=== PATIENT | female | born 1980 | race Two or more races ===

== ENCOUNTER 2016-05-31 20:04 | Emergency (ER) | payer BC, OTHER ==
[~2016-05-31] VITALS: Ht 167.6 cm; Wt 86.2 kg
[2016-05-31] MEDS ORDERED: MORPHINE SULFATE 4 MG/ML DISP.SYRIN. IV/SQ PRN (21:15)
--- NOTE | 2016-05-31 21:26 | ED.ADGEN ---
Past Medical History Past Medical History: No Pertinent History Past Surgical History: Tubal ligation, Other Additional Past Surgical Histo: d & c, uterine ablation Alcohol Use: Occasionally Drug Use: None Adult General Chief Complaint Chief Complaint: ABDOMINAL PAIN HPI HPI Patient is a 36 year old woman, with no significant past no history, who presents emergency department with a complaint of intermittent diffuse abdominal pain over the past several weeks, with intermittent episodes of nausea and vomiting, with 2 doses of vomiting today. Patient states that she was feeling lightheaded after this vomiting occurred, her abdominal pain did feel better after vomiting. No fevers or chills, no urinary complaints, no injuries, patient states that she had pain several years ago, which is evaluated , and the cause was not identified. She states that she is also experiencing headaches intermittently which seem to be associated with pain in the vomiting, located all over her head, no blurry vision, no weakness emesis or tingling. She states that "I take Excedrin all the time". She states her doctor is aware for headaches, but she is not discussed the abdominal pain with a primary care provider. She's not receive any previous evaluation. She states after vomiting twice today, she came to the ED for evaluation. Last bowel movement was this afternoon, and was normal. She states she had one episode of diarrhea last week , and that the vomiting abdominal pain at that time cause her to the several days of work. Review of Systems Review of Systems Constitutional: Denies fever or chills. [] Eyes: Denies change in visual acuity. [] HENT: Denies nasal congestion or sore throat. [] Respiratory: Denies cough or shortness of breath. [] Cardiovascular: Denies chest pain or edema. [] GI: Abdominal pain, nausea, vomiting. Diarrhea times one episode last week. Described as loose brown stool. No blood in emesis or stool. : Denies dysuria. [] Musculoskeletal: Denies back pain or joint pain. [] Integument: Denies rash. [] Neurologic: Denies focal weakness or sensory changes. [] Headache, intermittently over the past several months. Endocrine: Denies polyuria or polydipsia. [] Lymphatic: Denies swollen glands. [] Psychiatric: Denies depression or anxiety. [] Current Medications Current Medications Current Medications Medications (Trade) Dose Ordered Sig/Cesar Start Time Stop Time Status Last Admin Dose Admin Morphine Sulfate 4 mg 4 mg PRN Q15MIN PRN 05/31/16 21:15 06/01/16 00:47 DC 05/31/16 21:28 4 MG Ondansetron HCl (Zofran) 4 mg 1X ONCE 05/31/16 21:30 05/31/16 21:31 DC 05/31/16 21:28 4 MG Sodium Chloride (Iv Sodium Chloride 0.9% 1000ml Bag) 1,000 ml @ 1,000 mls/hr Q1H 05/31/16 21:30 05/31/16 22:29 DC 05/31/16 21:28 1,000 MLS/HR Allergies Allergies Allergies Coded Allergies Type Severity Reaction Last Updated Verified No Known Drug Allergies 11/03/14 No Physical Exam Physical Exam Constitutional: Well developed, well nourished, no acute distress, non-toxic appearance. [] HENT: Normocephalic, atraumatic, bilateral external ears normal, oropharynx moist, no oral exudates, nose normal. [] Eyes: PERRLA, EOMI, conjunctiva normal, no discharge. [] Neck: Normal range of motion, no tenderness, supple, no stridor. [] Cardiovascular:Heart rate regular rhythm, no murmur, S1, S2, rubs or gallops.] Lungs & Thorax: Bilateral breath sounds clear to auscultation, no wheezing, rhonchi, rales. No chest tenderness or crepitus. [] Abdomen: Bowel sounds normal, soft, mild tenderness palpation diffusely, especially in the periumbilical region, but also in the suprapubic region, no rebound rigidity or guarding, negative Gonsales sign, no masses, no pulsatile masses. [] Skin: Warm, dry, no erythema, no rash. [] Back: No tenderness, no CVA tenderness. [] Extremities: No tenderness, no cyanosis, no clubbing, ROM intact, no edema. [] Neurologic: Alert and oriented X 3, normal motor function, normal sensory function, no focal deficits noted. [] Psychologic: Affect normal, judgement normal, mood normal. [] Current Patient Data Vital Signs Vital Signs Date Time Temp Pulse Resp B/P Pulse Ox O2 Delivery O2 Flow Rate FiO2 06/01/16 00:06 80 17 119/57 99 Room Air 05/31/16 20:54 98.1 98.1 Lab Values Laboratory Tests Test 05/31/16 20:30 05/31/16 20:46 05/31/16 21:15 05/31/16 23:16 Urine Collection Type Unknown Urine Color Yellow Urine Clarity Clear Urine pH 6.5 Urine Specific [place] 1.025 Urine Protein Negativemg/dL (NEG-TRACE) Urine Glucose (UA) Negativemg/dL (NEG) Urine Ketones (Stick) Tracemg/dL (NEG) Urine Blood Large (NEG) Urine Nitrite Negative (NEG) Urine Bilirubin Negative (NEG) Urine Urobilinogen Dipstick 0.2mg/dL (0.2 mg/dL) Urine Leukocyte Esterase Trace (NEG) Urine RBC 0/HPF (0-2) Urine WBC 1-4/HPF (0-4) Urine Squamous Epithelial Cells Many/LPF Urine Bacteria Few/HPF (0-FEW) Urine Mucus Mod/LPF White Blood Count 9.5x10^3/uL (4.0-11.0) Red Blood Count 4.46x10^6/uL (3.50-5.40) Hemoglobin 13.0g/dL (12.0-15.5) Hematocrit 38.9% (36.0-47.0) Mean Corpuscular Volume 87fL (79-100) Mean Corpuscular Hemoglobin 29pg (25-35) Mean Corpuscular Hemoglobin Concent 34g/dL (31-37) Red Cell Distribution Width 12.7% (11.5-14.5) Platelet Count 86x10^3/uL (140-400) L Neutrophils (%) (Auto) 61% (31-73) Lymphocytes (%) (Auto) 27% (24-48) Monocytes (%) (Auto) 10% (0-9) H Eosinophils (%) (Auto) 2% (0-3) Basophils (%) (Auto) 1% (0-3) Neutrophils # (Auto) 5.7x10^3uL (1.8-7.7) Lymphocytes # (Auto) 2.6x10^3/uL (1.0-4.8) Monocytes # (Auto) 0.9x10^3/uL (0.0-1.1) Eosinophils # (Auto) 0.2x10^3/uL (0.0-0.7) Basophils # (Auto) 0.1x10^3/uL (0.0-0.2) Sodium Level 135mmol/L (136-145) L Potassium Level 3.6mmol/L (3.5-5.1) Chloride Level 102mmol/L (98-107) Carbon Dioxide Level 26mmol/L (21-32) Anion Gap 7 (6-14) Blood Urea Nitrogen 7mg/dL (7-20) Creatinine 0.7mg/dL (0.6-1.0) Estimated GFR (Cockcroft-Gault) 94.2 BUN/Creatinine Ratio 10 (6-20) Glucose Level 125mg/dL (70-99) H Calcium Level 8.9mg/dL (8.5-10.1) Total Bilirubin 0.3mg/dL (0.2-1.0) Aspartate Amino Transferase (AST) 32U/L (15-37) Alanine Aminotransferase (ALT) 63U/L (14-59) H Alkaline Phosphatase 85U/L (46-116) Total Protein 7.4g/dL (6.4-8.2) Albumin 3.4g/dL (3.4-5.0) Albumin/Globulin Ratio 0.9 (1.0-1.7) L Lipase 203U/L (73-393) Urine Opiates Screen Neg (NEG) Urine Methadone Screen Neg (NEG) Urine Barbiturates Neg (NEG) Urine Phencyclidine Screen Neg (NEG) Urine Amphetamine/Methamphetamine Neg (NEG) Urine Benzodiazepines Screen Neg (NEG) Urine Cocaine Screen Neg (NEG) Urine Cannabinoids Screen Neg (NEG) Urine Ethyl Alcohol Neg (NEG) Influenza Type A Antigen Negative (NEGATIVE) Influenza Type B Antigen Negative (NEGATIVE) Laboratory Tests 05/31/16 20:46 Laboratory Tests 05/31/16 20:46 EKG EKG ECG: Sinus tachycardia, heart rate 101 bpm, no ectopy. As interpreted by me. [] Radiology/Procedures Radiology/Procedures [] [facility] [address] [place], [place] [id number] IMAGING REPORT Signed PATIENT: SADA JONES ACCOUNT: [id number] : 1980 LOCATION: ER AGE: 36 SEX: F EXAM STATUS: REG ER ORD. PHYSICIAN: SANDEEP RIVERA DO REASON: abd pain x 2-3 weeks, worse today w/ n/v PROCEDURE: ABD PELV W/ IV CONTRAST ONLY PROCEDURE CT abdomen pelvis with intravenous contrast. HISTORY Abdominal pain for 3 weeks. Nausea, vomiting, diarrhea. TECHNIQUE After administration of intravenous contrast only, 75 mL Omnipaque 300, CT of the abdomen and pelvis was performed. Exposure: One or more of the following individualized dose reduction techniques were utilized for this examination: 1. Automated exposure control. 2. Adjustment of the mA and/or kV according to patient size. 3. Use of iterative reconstruction technique. COMPARISON None. FINDINGS Evaluation of enteric structures may be limited by lack of oral contrast. Liver, spleen, pancreas, gallbladder and bilateral adrenal glands are unremarkable. Bilateral kidneys and ureters are free of stone or obstruction. Urinary bladder is unremarkable. Bilateral tubal ligation clips are seen. Uterus and adnexa are otherwise unremarkable. No free air or free fluid is seen in the abdomen or pelvis. Appendix is not confidently identified, but no inflammatory change is seen adjacent to the cecum. Colonic diverticulosis is noted, but no diverticulitis is appreciated. IMPRESSION No acute abnormality identified in the abdomen or pelvis. Electronically signed by: Romel Jimenez MD (May 31, 2016 22:19:33) DICTATED and SIGNED BY: ROMEL JIMENEZ MD DATE: 05/31/16 2219 CC: SANDEEP RIVERA DO; MONY POON MD ~ Course & Med Decision Making Course & Med Decision Making Pertinent Labs and Imaging studies reviewed. (See chart for details) Patient with no further episodes of vomiting in the ED. Laboratory studies and imaging obtained after discussion with patient at bedside regarding risk versus benefit of CT scan with radiation to the length of her symptoms. Patient is agreeable with the plan to obtain CT. CT did not reveal any acutely concerning findings, laboratory studies also did not reveal any concerning findings. Flu swab was negative. On reevaluation after several hours in the ED, patient remains comfortable, states her nausea is better, and hasn't had further vomiting. I did discuss with patient that she may benefit from additional evaluation in the outpatient setting if the symptoms have been recurrent and persistent, she states that she ate is agreeable with this plan, I did give her list of additional primary care providers, and discussed the importance of follow-up with GI for additional evaluation. Patient also given Efrainan, Paulyl, for symptom medical management, as this may be a viral type illness, although she is negative for the flu in the ED, patient to return to the ED if any concerning symptoms develop, she voiced understanding and agreement with plan as above, discharged home in stable condition. Dragon Disclaimer Dragon Disclaimer This electronic medical record was generated, in whole or in part, using a voice recognition dictation system. Departure Impression: Primary Impression: Abdominal pain Disposition: HOME, SELF-CARE Condition: IMPROVED Scripts Dicyclomine Hcl (Bentyl)10 Mg [id number] Mg PO QID PRN PAIN #12 TAB Prov:SANDEEP RIVERA DO 06/01/16 Ondansetron Hcl (Zofran)4 Mg Tablet1 Tab PO PRN Q6-8HRS PRN NAUSEA #12 TAB Prov:SANDEEP RIVERA DO 06/01/16 Problem Qualifiers Primary Impression: Abdominal pain Abdominal location: generalized Qualified Code: R10.84 - Generalized abdominal pain SANDEEP RIVERA DO May 31, 2016 21:25
[2016-05-31 21:29] LABS: BILIRUBIN,URINE NEGATIVE (NEG); GLUCOSE,URINE NEGATIVE (NEG); NITRITE,URINE NEGATIVE (NEG); PH,URINE 6.5; PROTEIN,URINE NEGATIVE (NEG-TRACE); UROBILINOGEN,URINE 0.2 mg/dL (0.2 mg/dL)
[2016-05-31 21:30] LABS: BASO # 0.1 x10^3/uL (0.0-0.2); BASO % 1 % (0-3); EOS % 2 % (0-3); HEMATOCRIT 38.9 % (36.0-47.0); LYMPH # 2.6 x10^3/uL (1.0-4.8); LYMPH % 27 % (24-48); MEAN CORPUSCULAR HEMOGLOBIN 29 pg (25-35); MEAN CORPUSCULAR HGB CONC 34 g/dL (31-37); MEAN CORPUSCULAR VOLUME 87 fL (79-100); MONO % 10 % (0-9); NEUT % 61 % (31-73); PLATELET COUNT 86 x10^3/uL (140-400); RED BLOOD COUNT 4.46 x10^6/uL (3.50-5.40); RED CELL DISTRIBUTION WIDTH 12.7 % (11.5-14.5); WHITE BLOOD COUNT 9.5 x10^3/uL (4.0-11.0)
[2016-05-31] MEDS ORDERED: IV NORMAL SALINE 1000ML BAG 1,000 ML IV SCH (21:30)
[2016-05-31] MEDS ORDERED: ONDANSETRON PF 4 MG/2 ML VIAL. IV ONE (21:30)
[2016-05-31 21:36] LABS: BACTERIA,URINE FEW /HPF (0-FEW); RBC,URINE 0 /HPF (0-2); SQUAMOUS EPITHELIAL CELL,UR MANY /LPF
[2016-05-31 21:42] LABS: CALCIUM 8.9 mg/dL (8.5-10.1); CREATININE 0.7 mg/dL (0.6-1.0); GFR 94.2; POTASSIUM 3.6 mmol/L (3.5-5.1)
[2016-05-31 21:48] LABS: ALBUMIN 3.4 g/dL (3.4-5.0); ALBUMIN/GLOBULIN RATIO 0.9 (1.0-1.7); TOTAL BILIRUBIN 0.3 mg/dL (0.2-1.0); TOTAL PROTEIN 7.4 g/dL (6.4-8.2)
--- NOTE | 2016-05-31 22:21 | RAD ---
PROCEDURE CT abdomen pelvis with intravenous contrast. HISTORY Abdominal pain for 3 weeks. Nausea, vomiting, diarrhea. TECHNIQUE After administration of intravenous contrast only, 75 mL Omnipaque 300, CT of the abdomen and pelvis was performed. Exposure: One or more of the following individualized dose reduction techniques were utilized for this examination: 1. Automated exposure control. 2. Adjustment of the mA and/or kV according to patient size. 3. Use of iterative reconstruction technique. COMPARISON None. FINDINGS Evaluation of enteric structures may be limited by lack of oral contrast. Liver, spleen, pancreas, gallbladder and bilateral adrenal glands are unremarkable. Bilateral kidneys and ureters are free of stone or obstruction. Urinary bladder is unremarkable. Bilateral tubal ligation clips are seen. Uterus and adnexa are otherwise unremarkable. No free air or free fluid is seen in the abdomen or pelvis. Appendix is not confidently identified, but no inflammatory change is seen adjacent to the cecum. Colonic diverticulosis is noted, but no diverticulitis is appreciated. IMPRESSION No acute abnormality identified in the abdomen or pelvis. Electronically signed by: Romel Jacobs MD (May 31, 2016 22:19:33)
[2016-05-31 23:43] LABS: OBC FLU VALID
[2016-06-01 00:05] LABS: BARBITURATES NEG (NEG); BENZODIAZEPINES NEG (NEG); CANNABINOIDS NEG (NEG); COCAINE NEG (NEG); METHADONE NEG (NEG); OPIATES NEG (NEG); PHENCYCLIDINE NEG (NEG)
[2016-06-01 00:06] VITALS: BP 119/57
[2016-06-01 00:08] LABS: ETHANOL, URINE NEG (NEG)
[2016-06-01] MEDS ORDERED: ONDA4TAB7 PO (00:27)
[2016-06-01] MEDS ORDERED: DICY10CA53 PO (00:27)
== END 2016-06-01 00:47 | disposition home or self-care (01) ==
LOC: ER 20:04
DX: R10.9 Unspecified abdominal pain (principal); R51 Headache; R19.7 Diarrhea, unspecified; R42 Dizziness and giddiness; Z98.51 Tubal ligation status
CPT/HCPCS: 36415; 74177; 80053; 81001; 81025; 83690; 85027; 87086; 87804; 96361; 96374; 96375; 99285; G0481; J2270; J2405; J7030